=== PATIENT | male | born 1990 | race American Indian/Alaskan Native ===

== ENCOUNTER 2018-08-17 23:04 | Emergency (ER) | payer OTHER ==
[2018-08-17 23:19] VITALS: BP 134/94
[2018-08-17] MEDS ORDERED: IBUPROFEN PO ONE ×2 (23:46→23:47)
--- NOTE | 2018-08-18 00:03 | XRay Report ---
PROCEDURE: XR HAND 2V RT TECHNIQUE: Right hand 2 views HISTORY: hand pain COMPARISONS: FINDINGS: There is acute nondisplaced fracture through the base of the fifth metacarpal. Joint space appears in tact. No radiopaque foreign bodies are observed. Remaining bony structures seen are unremarkable. IMPRESSION: Nondisplaced fracture base of the fifth metacarpal. This document is electronically signed by Lion Cartagena MD., August 18 2018 12:00:36 AM ET
--- NOTE | 2018-08-18 01:00 | Emergency Department Report ---
Upper Extremity - [facility] Chief Complaint: Extremity Injury, Upper Stated Complaint: RIGHT HAND PAIN Time Seen by Provider: 08/18/18 00:56 Upper Extremity: Right Hand Occurred When: Today Mechanism: Hit with Object Severity: severe Symptoms: Yes Pain with Movement, Yes Limited Range of Movement (secondary to pain), Yes Swelling, No Deformity, No Numbness, No Weakness, No Bruising/Ecchymosis, No Laceration or Abrasion Other History: Patient is a 27-year-old male since emergency room with complaints of right hand pain patient states the pain is 10 out of 10. Patient states pain is worse with movement and palpation. Patient states the pain is better with rest and immobilization. Patient states lucian he is able to move his fingers but it hurts more. Patient denies past medical history. Patient denies allergy to medications. ED Review of Systems ROS: Stated complaint: RIGHT HAND PAIN Other details as noted in HPI Constitutional: denies: chills, fever Eyes: denies: eye pain, eye discharge, vision change ENT: denies: ear pain, throat pain Respiratory: denies: cough, shortness of breath, wheezing Cardiovascular: denies: chest pain, palpitations Endocrine: no symptoms reported Gastrointestinal: denies: abdominal pain, nausea, diarrhea Genitourinary: denies: urgency, dysuria Musculoskeletal: denies: back pain, joint swelling, arthralgia Skin: denies: rash, lesions Neurological: denies: headache, weakness, paresthesias Psychiatric: denies: anxiety, depression Hematological/Lymphatic: denies: easy bleeding, easy bruising ED Past Medical Hx - Past Medical History Previous Medical History?: No - Surgical History Past Surgical History?: No - Family History Family history: no significant - Social History Smoking Status: Current Every Day Smoker Substance Use Type: Alcohol - Medications Home Medications: Home Medications Medication Instructions Recorded Confirmed Last Taken Type HYDROcodone/APAP 5-325 [[place] 1 each PO Q4HR PRN #12 tablet 08/18/18 Unknown Rx 5/325] Upper Extremity Exam - Exam General: Vital signs noted. No distress. Alert and acting appropriately. The patient appeared well nourished and normally developed. Vital signs as documented. Head exam is unremarkable. No scleral icterus or corneal arcus noted. Lungs are clear to auscultation and percussion. Cardiac exam reveals the Rhythm is regular. First and second heart sounds normal. No murmurs, rubs or gallops. Head and Torso: No HEENT Abnormality, No Neck Tenderness, No Chest/Lungs Abnormality, No Abdominal Tenderness, No Back Tenderness Shoulder Exam: Yes Normal Range of Motion in Shoulder, No Shoulder Tenderness, No Clavicle Tenderness, No Shoulder Deformity, No AC Joint Tenderness Arm Exam: No Arm/Humerus Tenderness, No Arm Deformity Elbow: Yes Normal Range of Motion in Elbow, No Elbow Tenderness, No Elbow Deformity Forearm: No Forearm Tenderness, No Forearm Deformity, No Pain with Pronation, No Pain with Supination Wrist: Yes Normal ROM in Wrist, No Wrist Tenderness, No Wrist Deformity, No Snuffbox Tenderness, No Pain with Axial Thumb Compression Hand: Yes Hand Tenderness (rt), Yes Normal ROM in Digit(s), No Hand Deformity, No Digit Tenderness, No Digit(s) Deformity, No Tendon Dysfunction CMS Exam: Yes Normal Distal Pulses, Yes Normal Capillary Refill, Yes Normal Distal Sensation, No Broken Skin ED Course Vital Signs 08/17/18 23:18 Temperature 98.4 F Pulse Rate 71 Respiratory 16 Rate Blood Pressure 134/94 O2 Sat by Pulse 100 Oximetry - Reevaluation(s) Reevaluation #1: Initial evaluation done. Patient stable for discharge. Discussed all results with patient. Discussed follow-up and discharge instructions with patient. Patient voiced understanding of discharge instructions. 08/18/18 01:09 - Orthopedic Splinting/Casting Injury #1 Side: right Upper Extremity Injury Location: hand Upper Extremity Immobilizer: finger (other) Additional Comments: Right boxer's fracture prefabricated splint placed and neurovascular intact after placement. Cap refill before and after placement. Patient has good sensation ED Medical Decision Making - Radiology Data Radiology results: report reviewed, image reviewed PROCEDURE: XR HAND 2V RT TECHNIQUE: Right hand 2 views HISTORY: hand pain COMPARISONS: FINDINGS: There is acute nondisplaced fracture through the base of the fifth metacarpal. J oint space appears intact. No radiopaque foreign bodies are observed. Remaining bony structures seen are unremarkable. IMPRESSION: Nondisplaced fracture base of the fifth metacarpal. - Medical Decision Making H and is 27-year-old male presents emergency room with a right hand injury and found to have a right boxer's fracture. Patient was placed in a prefabricated h and splint for a boxer's fracture. Patient's cap refill and neurovascular intact after splint placement. X-ray reviewed. X-ray shows a nondisplaced metacarpal fracture of the fifth metacarpal. - Differential Diagnosis fracture. Contusion. Critical care attestation.: If time is entered above; I have spent that time in minutes in the direct care of this critically ill patient, excluding procedure time. ED Disposition Clinical Impression: Closed boxer's fracture Qualifiers: Encounter type: initial encounter Qualified Code(s): S62.339A - Displaced fracture of neck of unspecified metacarpal bone, initial encounter for closed fracture Disposition: TO HOME OR SELFCARE Is pt being admited?: No Does the pt Need Aspirin: No Condition: Stable Instructions: Hand Fracture (ED), Boxer Fracture (ED) Additional Instructions: Patient follow-up with primary care in 2-3 days. Patient to follow-up with orthopedist in 2-3 days. Patient to keep splint on until cleared by orthopedist. Patient to take Tylenol or ibuprofen when necessary for pain. Patient to rest. Patient to elevate limb. Prescriptions: HYDROcodone/APAP 5-325 [[place] 5/325] 1 each PO Q4HR PRN #12 tablet PRN Reason: Pain Referrals: MARCUS CARDENAS MD [Staff Physician] - 2-3 Days Time of Disposition: 01:12
== END 2018-08-18 01:40 | disposition home or self-care (01) ==
LOC: ED 23:04
DX: S62.339A Displaced fracture of neck of unspecified metacarpal bone, initial encounter for closed fracture (principal); F17.200 Nicotine dependence, unspecified, uncomplicated; W22.8XXA Striking against or struck by other objects, initial encounter; Y93.89 Activity, other specified; Y92.89 Other specified places as the place of occurrence of the external cause; Y99.8 Other external cause status